=== PATIENT | male | born 1955 | race Caucasian/White ===

== ENCOUNTER 2018-04-19 13:16 | Emergency (ER) | payer MEDICAID ==
[~2018-04-19] VITALS: Ht 175.3 cm; Wt 85.0 kg
[2018-04-19] MEDS ORDERED: IBUPROFEN 600MG TABLET PO ONE (21:15)
[2018-04-20 11:59] VITALS: BP 118/63
== END 2018-04-20 12:00 | disposition home or self-care (01) ==
LOC: ER 13:16
DX: Z04.8 Encounter for examination and observation for other specified reasons (principal); M25.571 Pain in right ankle and joints of right foot; Z59.0 Homelessness
CPT/HCPCS: 73610; 99284